=== PATIENT | female | born 1960 | race Caucasian/White ===

== ENCOUNTER 2017-11-08 00:53 | Outpatient (CLI) | payer BC, SELFPAY ==
[2017-11-08 15:37] LABS: ALT 30 U/L (12-78); AST 24 U/L (15-37); Albumin 3.7 g/dL (3.4-5.0); Alkaline Phosphatase 91 U/L (46-116); Anion Gap 6.3 mmol/L (3-11); BUN 15 mg/dL (7-18); Bilirubin, Total 0.5 mg/dL (0.2-1.0); CO2 29.7 mmol/L (21.0-32.0); CREATININE 0.72 mg/dL (0.55-1.02); Chloride 104 mmol/L (98-107); Glucose 80 mg/dL (70-100); Potassium 3.8 mmol/L (3.5-5.1); Sodium 140 mmol/L (136-145); Total Protein 6.7 g/dL (6.4-8.2); Vitamin B12 474 pg/mL (193-986)
== END 2017-11-08 01:13 ==
DX: E53.8 Deficiency of other specified B group vitamins (principal); Z00.00 Encounter for general adult medical examination without abnormal findings
CPT/HCPCS: 36415; 80053; 82607

== ENCOUNTER 2017-11-12 17:31 | Outpatient (REF) | payer BC, SELFPAY ==
--- NOTE | 2017-11-12 16:00 | PAPFT_PTH ---
PATIENT: Liudmila Montalvo LOC: [facility] U#:[id number] AGE/SX: 57/F ROOM: RE11/12/[address]: Ally Tom APRN : 1960 BED: DIS: 11/12/2017 SPEC #: [id number] RECD: 11/13/17 12:50 STATUS: RC LEAL #: [id number] SLADE: 11/12/17 16:[address]: Ally Tom DEPT: [facility] Cytology RECD BY: Aleksandra Luo Tissues: 1 - CX/ENDOCX FOR PAP SMEARS Procedures: PAP THIN PREP/UVM Screening Comments: [id number]
== END 2017-11-12 17:51 ==
LOC: LBN 17:31
DX: Z12.4 Encounter for screening for malignant neoplasm of cervix (principal)
CPT/HCPCS: 88142

== ENCOUNTER 2017-11-28 01:28 | Outpatient (CLI) | payer BC, SELFPAY ==
--- NOTE | 2017-11-28 16:00 | DI.MAMMO_ITS ---
SYMPTOM/DIAGNOSIS: SCREENING, Z12.31 MAMMOGRAMS: Mammograms were interpreted according to the usual protocol including computer analysis with CAD system, tomosynthesis and C view imaging. The breast tissue is heterogeneously radiodense which lowers the sensitivity of the study. There is no dominant mass. There are no suspicious calcifications and there has no gross interval change when compared with prior images. SUMMARY: No evidence of malignancy. Category 1. Yearly screening mammography is recommended. Breast density, category B. MQSA ASSESSMENT OF FINDINGS: Negative. Category 1. Patient will receive a letter notifying them of these results. BI-RADS category B. There are scattered areas of fibroglandular density.
== END 2017-11-28 01:48 ==
DX: Z12.31 Encounter for screening mammogram for malignant neoplasm of breast (principal)
CPT/HCPCS: 77063; 77067

== ENCOUNTER 2018-12-13 09:06 | Outpatient (CLI) | payer BC, SELFPAY ==
[2018-12-13 10:36] LABS: ALT 39 U/L (14-59); AST 23 U/L (15-37); Albumin 3.7 g/dL (3.4-5.0); Alkaline Phosphatase 75 U/L (46-116); Anion Gap 6.8 mmol/L (3-11); BUN 17 mg/dL (7-18); Bilirubin, Total 0.6 mg/dL (0.2-1.0); CO2 29.2 mmol/L (21.0-32.0); CREATININE 0.77 mg/dL (0.55-1.02); Calcium 9.4 mg/dL (8.5-10.1); Chloride 106 mmol/L (98-107); Glucose 87 mg/dL (70-100); Potassium 4.2 mmol/L (3.5-5.1); Sodium 142 mmol/L (136-145); Total Protein 7.1 g/dL (6.4-8.2); Vitamin B12 742 pg/mL (193-986)
== END 2018-12-13 09:26 ==
DX: Z00.00 Encounter for general adult medical examination without abnormal findings (principal); E53.8 Deficiency of other specified B group vitamins
CPT/HCPCS: 36415; 80053; 82607

== ENCOUNTER 2019-02-02 00:50 | Outpatient (CLI) | payer BC, SELFPAY ==
--- NOTE | 2019-02-02 09:24 | DI.MAMMO_ITS ---
EXAM: MG MAMMO SCREENING CLINICAL HISTORY: screening, Z12.39. TECHNIQUE: Bilateral full field digital CC and MLO mammographic images were obtained with 3D tomosyn thesis and utilizing computer aided detection (CAD). COMPARISON: Available for comparison. FINDINGS: Masses/Architectural Distortion: None seen. Microcalcifications: No suspicious pleomorphic-type are seen. Skin Thickening/Nipple Retraction: None. IMPRESSION: 1. No significant interval change with no specific features of malignancy noted. 2. Unless there is more urgent need, screening mammography is recommended, as per [employer] guidelines. ACR BI-RAD Category- 1 Negative Breast Density - Category B - Scattered areas of fibroglandular density A negative radiographic report should not delay biopsy if a dominant or clinically suspicious mass is present. Up to ten percent of cancers are not identified on mammography. A negative report may reinforce clinical impression. Adenosis and dense breasts may obscure an underlying neoplasm. False positive reports average 6 to 10%. Patient will receive a letter notifying them of these results.
== END 2019-02-02 01:10 ==
DX: Z12.31 Encounter for screening mammogram for malignant neoplasm of breast (principal)
CPT/HCPCS: 77063; 77067

== ENCOUNTER 2019-04-27 13:52 | Outpatient (CLI) | payer BC, SELFPAY ==
--- NOTE | 2019-04-27 13:45 | DI.RAD_ITS ---
EXAM: XR KNEE RT 3V AP,LAT,RAHEL CLINICAL HISTORY: R KNEE PAIN. TECHNIQUE: 2D digital imaging was performed. COMPARISON: CHEST 2 VIEWS PA,LAT from 05/05/2014 FINDINGS: BONES: No acute fracture is present. No bony destructive lesion is seen. Small enthesophyte at the hurt perior aspect of the patella. JOINTS: The knee is normally aligned. Small joint effusion. Periarticular spurring involving all 3 j oint compartments. SOFT TISSUE: Normal. IMPRESSION: Mild degenerative changes of the right knee. DATA REPOSITORY: RADIATION DOSE DELIVERED:
== END 2019-04-27 14:12 ==
PROVIDERS: Visit Provider Physician Assistant
DX: M25.561 Pain in right knee (principal); M25.461 Effusion, right knee; M17.11 Unilateral primary osteoarthritis, right knee
CPT/HCPCS: 73562

== ENCOUNTER 2019-06-22 01:40 | Outpatient (CLI) | payer BC, SELFPAY ==
--- NOTE | 2019-06-22 08:00 | DI.MRI_ITS ---
EXAM: MR LOWER JOINT RT WO CLINICAL HISTORY: R knee injury, INTERNAL DERANGEMENT, PAIN, M23.91. TECHNIQUE: Multiplanar multisequence MRI was performed. COMPARISON: MR MRI R LOWER JOINT WO CONT from 10/30/2016 FINDINGS: MR examination the right knee was performed according to the usual protocol. There is a moderate size knee joint effusion. Bones: There is abnormal signal in lateral femoral condyle and central portion of the distal femur. No other significant signal abnormality seen. Articular cartilage: There may be slight thinning of the patello femoral articular cartilage. There is irregular thinning of the articular cartilage of the medial femoral condyle and associated proxima l tibial articular surface. There is focal cartilage thinning associated with the aforementioned are a abnormal signal in medial femoral condyle consistent with an osteochondral defect. No bony fragmen tation seen. Menisci: There is an apparent inferior surfacing posterior horn nondisplaced medial meniscal tear. N o tear of the lateral meniscus or attachments. Cruciate ligaments: No cruciate ligament tear seen. Mildly abnormal signal in the anterior cruciate ligament, nonspecific. Collateral ligaments: No evidence of a collateral ligament tear. Posterolateral corner structures appear unremarkable. IMPRESSION: Osteochondral defect of the medial anterior aspect of the lateral femoral condyle. Cortical thinning without bony fragmentation or obvious free bony fragment Degenerative articular cartilage changes at the medial tibiofemoral joint associated with a nondispla darvin medial meniscal tear. DATA REPOSITORY:
== END 2019-06-22 02:00 ==
PROVIDERS: Visit Provider Student in an Organized Health Care Education/Training Program
DX: M25.561 Pain in right knee (principal); M23.91 Unspecified internal derangement of right knee; M25.461 Effusion, right knee; S83.241A Other tear of medial meniscus, current injury, right knee, initial encounter
CPT/HCPCS: 73721

== ENCOUNTER 2019-08-07 07:39 | Outpatient (CLI) | payer BC, SELFPAY ==
[2019-08-07 22:38] LABS: COVID-19 RT-PCR UVMMC Result Negative (Negative)
== END 2019-08-07 07:59 ==
PROVIDERS: Visit Provider Student in an Organized Health Care Education/Training Program
DX: Z01.818 Encounter for other preprocedural examination (principal); Z11.59 Encounter for screening for other viral diseases
CPT/HCPCS: U0003

== ENCOUNTER 2019-08-11 09:47 | Day surgery (SDC) | payer BC, SELFPAY ==
--- NOTE | 2019-08-10 18:35 | W.PREOPHP ---
Assessment and Plan Assessment and plan (1) Complex tear of medial meniscus of right knee: Status: Acute Assessment and plan: Plan: Patient tested negative for Covid-19 on 08/07/2019. Patient reports that she has been in quarantine since being tested and denies contact with COVID-19 positive persons. Educated patient on surgery covering surgical technique, recovery process, benefits and risks including but not limited to risk of infection, blood clot, damage to soft tissue/blood vessels/nerves in detail. After discussion patient gives verbal understanding of risks and elects to proceed with scheduling surgery. Patient had opportunity to have questions answered to their satisfaction. Patient will continue to be scheduled for right knee arthroscopy with likely partial medial meniscectomy with Dr. Villatoro. History of Present Illness Narrative: Ms. Montalvo is a 58-year-old female who presents to hospital for scheduled right knee arthroscopy with likely partial medial meniscectomy. Patient has previously been seen in orthopedic clinic for right knee pain. Initially she had discomfort that responded with injections. Unfortunately, since that time she started to have sharp discomfort with twisting motions of the knee. Based on patient's history as well as MRI which showed tear of the medial meniscus she was offered surgical intervention and wished to proceed. Review of Systems Cardiovascular Cardiovascular: Denies chest pain, Denies rapid heart rate, Denies irregular heart rhythm, Denies dyspnea and Denies slow heart rate Respiratory Respiratory: Denies cough and Denies dyspnea [facility] Social History Smoking/Tobacco Use Status: Never Second Hand Exposure: Yes Alcohol Intake: never Drug use: Never Substance use type: does not use Counseling given: No Counseling provided: none Caregiver/Support person: No Household members: none Housing: house Communication Needs: None Do you need help understanding health information?: Rarely current occupation: TEACHER [employer] Pets and animals: No Do you think of yourself as: straight/heterosexual Current gender identity: female What is your relationship status?: never How often do you talk on the phone with friends or family?: three or more times per week How often do you get together with friends or relatives?: three or more times per week How often do you attend orthodox or synagogue services?: decline to answer Do you belong to any clubs or organized social groups?: yes Panel score (0-1 are the most socially isolated patients): 2 What type of physical activity do you participate in: walking, bicycling and weight lifting Duration: 45-60 minutes/day Frequency: 5-6 times per week Trudy/Sikh: Mormon Special trudy needs: No Seatbelt use: always Helmet use: Yes Helmet use: always Drive intox or ride w/intox bus driver supervisor: No Do you feel safe at home: Yes Do you feel safe in your relationship?: Yes Meds Home Medications and Allergies Home Medications Medication Instructions Recorded Confirmed Type Glucosamine Complex-MSM 1 ea PO DAILY 08/19/12 08/11/19 History ibuprofen [Motrin IB] 200 mg PO PRN 08/19/12 08/11/19 History meclizine [Antivert] 25 mg PO TID PRN 08/19/12 08/11/19 History cyanocobalamin (vitamin B-12) 1,000 mcg PO DAILY #90 tab-cap 10/01/13 08/11/19 History [Vitamin B-12] ferrous sulfate 27 mg iron tablet 27 mg PO DAILY tab 11/12/17 08/11/19 History omega 0-cgk-bfy-fish oil 1,000 mg 1 cap PO DAILY 11/18/18 08/11/19 History (120 mg-180 mg) capsule acetaminophen 500 mg tablet 500 mg PO Q6H PRN #60 tab 08/11/19 08/11/19 Rx ibuprofen 600 mg tablet 600 mg PO TID PRN #60 tab 08/11/19 08/11/19 Rx Allergies Allergy/AdvReac Type Severity Reaction Status Date / Time kiwi Allergy Intermediate Verified 08/11/19 10:30 gabapentin AdvReac Mild Anxiety Verified 08/11/19 10:30 erythromycin base AdvReac Unknown Verified 08/11/19 10:30 hydrocodone AdvReac Unknown GI Verified 08/11/19 10:30 INTOLERANCE Exam Resp Effort & Inspection: normal respiratory effort and able to speak in complete sentences Auscultation: clear to auscultation bilaterally, no rales, no rhonchi and no wheezes Cardio Heart Sounds: S1 normal, S2 normal and no murmurs
--- NOTE | 2019-08-11 07:14 | W.PM.DSUDISC ---
Discharge Plan Disposition Patient Disposition: HOME Condition: Good Discharge Details Reason For Visit: right knee complex tear of the medial meniscus Attending Provider: Corey Villatoro Primary Care Provider: Ally Tom Home Meds and New Rx's Prescriptions: New tramadol 50 mg tablet 50 mg PO BID PRN (Reason: postoperative pain) Qty: 8 RF: 0 Continued ferrous sulfate 27 mg iron tablet 27 mg PO DAILY RF: 0 omega 0-vtr-ivg-fish oil [Fish Oil] 1,000 mg (120 mg-180 mg) capsule 1 cap PO DAILY RF: 0 meclizine [Antivert] 25 MG tablet 25 mg PO TID PRNRF: 0 ibuprofen [Motrin IB] 200 MG tablet 200 mg PO PRN RF: 0 Glucosamine Complex-MSM 1 EACH capsule 1 ea PO DAILY RF: 0 cyanocobalamin (vitamin B-12) [Vitamin B-12] 1,000 MCG tablet extended release 1,000 mcg PO DAILY Qty: 90 RF: 4 No Action ibuprofen 600 mg tablet 600 mg PO TID PRN (Reason: pain) Qty: 60 RF: 2 acetaminophen 500 mg tablet 500 mg PO Q6H PRN (Reason: pain) Qty: 60 RF: 2 Discharge Instructions Stand Alone Forms: [facility] Knee Arthroscopy Referrals: Corey Villatoro MD [ [facility] STAFF PHYSICIAN] - Equipment/Supplies: Partial Weight Bearing Crutches Activity:: Elevate Remove Dressings/Wound Care:: 72 hours Shower/Bathe:: 72 hours Diet:: As Tolerated Discharge Orders Discharge Orders: Discharge Order (Routine); Ordered 08/11/19 Ordered By: Kathleen Schilling DS: Diagnosis Discharge Diagnosis (1) Complex tear of medial meniscus of right knee: Status: Acute
[2019-08-11 10:18] VITALS: BP 115/79; PULSE 62; RESP 16; TEMP 36.6; O2SAT 99
[2019-08-11] MEDS: Lactated Ringers 1,000 ML 80 ML IV (10:53)
[2019-08-11] MEDS: ceFAZolin 2 GM/50 ML BAG IVPB (12:04)
[2019-08-11] MEDS: Bupivacaine 0.5% Pres-Free 30 ML VIAL (12:29)
[2019-08-11 13:27] VITALS: BP 115/69; PULSE 58; RESP 18; TEMP 36.2; O2SAT 100
--- NOTE | 2019-08-11 19:20 | W.PM.OP ---
Date of service: 08/11/19 Time of Service: 12:20 Operative Note Operative Note DATE OF PROCEDURE: 08/11/19 PRE-OP DIAGNOSIS: Right Knee Medial Meniscus Tear POST-OP DIAGNOSIS: same PROCEDURE: Right Knee Arthroscopic Partial Medial Menisectomy SURGEON: Corey Villatoro ANESTHESIA: GETA ESTIMATED BLOOD LOSS: 0 PATHOLOGY: none sent TOURNIQUET TIME: 0 COMPLICATIONS: None Patient was transported to: PACU Patient's condition: stable Indications: I have seen Liudmila in clinic for symptoms of a meniscus tear. This was confirmed based on MRI and exam findings. Nonoperative measures were exhausted but disability and pain persisted. I discussed knee arthroscopy with meniscal intervention with the patient. I reviewed the risks of the procedure to include, but not limited to, bleeding, infection, pain, stiffness, damage to nerves or vessels, recurrence, blood clot. Despite these risks, the patient elected to proceed. 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 The consent was reviewed with the patient and signed. The history and physical was updated. All questions were answered. She was taken back to the operating room. The patient was placed into the supine position on the operating room table. A nonsterile tourniquet was placed high onto the leg but not used. All bony prominences were well padded. Prophylactic antibiotics in the form of Cefazolin were administered. The right leg was then prepped with Chloraprep and draped in a standard fashion with stockinette and extremity drape. A timeout to confirm correct identity, side and site, procedure, allergies, anesthesia, and medical concerns was performed. The leg was placed into a pneumatic leg schofield, SPIDER2. A standard lateral portal was made at the lateral border of the patella tendon in line with the inferior pole of the patella, soft spot. The skin and deep tissue was incised sharply and the blunt trochar was inserted atraumatically. A diagnostic arthroscopy was performed and the findings are listed above. The suprapatellar pouch had no significant inflammatory change. The patellofemoral articulation showed areas of Grade I chondromalacia of both trochlea and patella as well as good tracking. The lateral gutter had no loose bodies and the medial gutter had no loose bodies. The knee was brought into some valgus stress in extension to open the medial compartment. A medial portal was made, localized by a spinal needle. The portal was created with an #11 blade through skin and capsule under direct visualization avoiding any meniscal injury. A probe was then inserted into the medial compartment. The medial compartment was fully inspected. The chondral surface of the tibia showed no significant chondromalacia and the surface of the femur showed some Grade I chondromalacia. The medial meniscus had a complex tear with a parrot beak extension just medial to the root. After evaluation, the meniscus was debrided down to a stable base using a series of biters and arthroscopic olaf. It was probed afterwards to confirm that the tear had been removed and the meniscus was stable. The notch was then inspected which showed an intact ACL and an intact PCL. The leg was then brought into a figure of 4 position. The lateral compartment was fully inspected with the arthroscope and a probe. The chondral surface of the lateral femur showed no significant chondromalacia. The chondral surface of the lateral tibia showed no significant chondromalacia. The lateral meniscus had no meniscal tear. The arthroscope was brought back into the suprapatellar pouch and the leg was in full extension. The knee was thoroughly irrigated with the arthroscopic fluid on high flow and pressure. Inflow was stopped and excess fluid was removed. The wounds were closed with 4-0 Nylon. They were dressed with Xeroform, 4x4 gauze, ABD pad, Kerlix and an MANDA wrap. A cryo-cuff was applied. The patient tolerated the procedure well and was returned to the Same Day Surgery area in a stable condition suffering no known complication.
== END 2019-08-11 15:14 | disposition home or self-care (01) ==
LOC: SUR 09:48
PROVIDERS: Visit Provider Student in an Organized Health Care Education/Training Program
PROC: (CPT 29870; principal; 2019-08-11 11:30)
DX: S83.231A Complex tear of medial meniscus, current injury, right knee, initial encounter (principal); M94.261 Chondromalacia, right knee; M22.41 Chondromalacia patellae, right knee
CPT/HCPCS: 29881; NC; J0690; J2405

== ENCOUNTER 2019-11-26 17:21 | Outpatient (REF) | payer BC, SELFPAY ==
[2019-11-26 21:41] LABS: Hemoglobin A1C 5.5 % (<5.7)
[2019-11-26 21:42] LABS: BUN 19 mg/dL (7-18); CREATININE 0.79 mg/dL (0.55-1.02); Calcium 9.5 mg/dL (8.5-10.1); Calculated LDL 128 mg/dL (<100); Chloride 104 mmol/L (98-107); Cholesterol 252 mg/dL (<200); Glucose 93 mg/dL (74-106); HDL Cholesterol 113 mg/dL (40-60); Potassium 4.1 mmol/L (3.5-5.1); Sodium 142 mmol/L (136-145); Triglyceride 56 mg/dL (<150)
== END 2019-11-26 17:41 ==
LOC: LBN 17:21
PROVIDERS: Visit Provider Nurse Practitioner Family
DX: E78.5 Hyperlipidemia, unspecified (principal)
CPT/HCPCS: 80048; 80061; 83036

== ENCOUNTER 2020-02-17 02:42 | Outpatient (CLI) | payer BC, SELFPAY ==
--- NOTE | 2020-02-17 14:55 | DI.MAMMO_ITS ---
EXAM: MG MAMMO SCREENING CLINICAL HISTORY: screening,Z12.39. TECHNIQUE: Bilateral full field digital CC and MLO mammographic images were obtained with 3D tomosyn thesis and utilizing computer aided detection (CAD). COMPARISON: Prior mammograms dating back to 2010, the most recent being January 2019.. FINDINGS: There are no spiculated masses nor malignant appearing microcalcification groups. There is no signif icant architectural distortion nor skin thickening-retraction. IMPRESSION: No radiographic evidence of malignancy. BI-RADS Category 1 - Negative Breast Density - Category B - Scattered areas of fibroglandular density Breast density Category C or D implies that the patient has dense breast tissue. Dense breast tissue can make it harder to find cancer on a mammogram. Dense breast tissue is also associated with an incr eased risk of breast cancer. This information about the result of the mammogram report was provided to the patient to raise their awareness. Use this report when you speak with the patient about their risks for breast cancer, which includes their family history. At that time, you may recommend additional screening tests (Ultrasoun d or MRI) as these tests may add significant information. A negative radiographic report should not delay biopsy if a dominant or clinically suspicious mass is present. Up to ten percent of cancers are not identified on mammography. A negative report may reinforce clinical impression. Adenosis and dense breasts may obscure an underlying neoplasm. False positive reports average 6 to 10%. Patient will receive a letter notifying them of these results.
== END 2020-02-17 03:02 ==
PROVIDERS: PCP Nurse Practitioner Family; Visit Provider Nurse Practitioner Family
DX: Z12.31 Encounter for screening mammogram for malignant neoplasm of breast (principal)
CPT/HCPCS: 77063; 77067

== ENCOUNTER 2020-12-08 14:32 | Outpatient (REF) | payer BC, SELFPAY ==
--- NOTE | 2020-12-08 10:50 | PAPFT_PTH ---
PATIENT: Liudmila Montalvo LOC: [facility] U#:[id number] AGE/SX: 60/F ROOM: RE12/08/[address]: SUSAN Moran : 1960 BED: DIS: 12/08/2020 SPEC #: [id number] RECD: 12/08/20 18:28 STATUS: RC REQ #: [id number] SLADE: 12/08/20 10:[address]: Vane Reynoso DEPT: [facility] Cytology RECD BY: Aleksandra Luo Tissues: 1 - CX/ENDOCX FOR PAP SMEARS Procedures: PAP THIN PREP/UVM Screening HPV DNA PROBE Comments: [id number]
== END 2020-12-08 14:33 | disposition home or self-care (01) ==
LOC: LBN 14:32
PROVIDERS: PCP Nurse Practitioner Family; Visit Provider Nurse Practitioner Family
DX: Z12.4 Encounter for screening for malignant neoplasm of cervix (principal); Z11.51 Encounter for screening for human papillomavirus (HPV)
CPT/HCPCS: 88142; 87624

== ENCOUNTER 2021-03-15 00:47 | Outpatient (CLI) | payer BC, SELFPAY ==
--- NOTE | 2021-03-15 06:45 | DI.MAMMO_ITS ---
Exam(s) MAMMO SCREENING EXAM: MAMMO SCREENING CLINICAL HISTORY: screening,z12.39 TECHNIQUE: Mammograms were interpreted according to the usual protocol including computer analysis w [employer] CAD system, tomosynthesis and C-view imaging. COMPARISON: 2011 through 2020 FINDINGS: The breasts are composed of scattered fibroglandular densities, Breast Density category B. No suspicious masses or suspicious microcalcifications are seen. No skin thickening or abnormal axillary lymph nodes are seen. There has been no significant change from prior exams. IMPRESSION: BI-RADS Category 1, Negative mammogram Yearly screening mammography is recommended. Breast Density - Category B, scattered fibroglandular densities. A negative radiographic report should not delay biopsy if a dominant or clinically suspicious mass is present. Up to ten percent of cancers are not identified on mammography. A negative report may reinforce clinical impression. Adenosis and dense breasts may obscure an underlying neoplasm. False positive reports average 6 to 10%. Patient will receive a letter notifying them of these results.
== END 2021-03-15 01:07 ==
PROVIDERS: PCP Nurse Practitioner Family; Visit Provider Nurse Practitioner Family
DX: Z12.31 Encounter for screening mammogram for malignant neoplasm of breast (principal)
CPT/HCPCS: 77063; 77067

== ENCOUNTER 2021-10-20 11:06 | Day surgery (SDC) | payer BC, SELFPAY ==
--- NOTE | 2021-10-19 19:33 | W.COLOREPORT ---
Colonoscopy Report Date of procedure: 10/20/21 Pre-op diagnosis general: CRC screening Post-op diagnosis procedure note: other (normal) Surgeon: Kathleen Tee Anesthesia Type: General:No Airway Estimated blood loss (mL): 0 Pathology: none sent Complications: None Disposition: same day Prep: Miralax/Dulcolax Retraction Time: 8 Procedure Description: After informed consent was obtained the patient was taken to the procedure room and placed in a left decubitous position. Monitors were applied and a time out was done. The patients name, date of , procedure, allergies to medications and metal in their body was reviewed. The patient was then sedated. Once sedated and comfortable a rectal exam was done. External exam was normal. Internal exam revealed a normal sphincter tone and no palpable masses. The scope was then introduced and retrofelexed. grade 1x1 column internal hemorrhoids and a hemorrhoidal tag were identified. The scope was then advanced to the cecum w/out difficulty. The TI and appendiceal orifice were identified. The prep was BB PS 2 in all segments for a total of 6. The scope was then slowly retracted over 8 minutes back into the rectum. There are no polyps, AVMs, or diverticula visualized today. Mucosa is pink and healthy with a normal vascular pattern.. The scope was removed and the patient was woken up and taken back to Same day surgery in stable condition. The patient tolerated the procedure well and there were no immediate complications. Follow up: The patient should follow up in 10 years unless they develop changes in bowel habits or other new gastrointestinal complaints.
--- NOTE | 2021-10-19 19:34 | PDOC.DSDIS_ITS ---
Discharge Plan Disposition Patient Disposition: HOME Condition: Good Discharge Details Reason For Visit: colon cancer screening Attending Provider: Kathleen Tee Primary Care Provider: Vane Reynoso Home Meds and New Rx's Prescriptions: Continued ibuprofen 600 mg tablet 600 mg PO TID PRN (Reason: pain) Qty: 60 2RF acetaminophen 500 mg tablet 500 mg PO Q6H PRN (Reason: pain) Qty: 60 2RF ferrous sulfate 27 mg iron tablet 27 mg PO DAILY omega 9-rwq-qoj-fish oil [Fish Oil] 1,000 mg (120 mg-180 mg) capsule 1 cap PO DAILY cholecalciferol (vitamin D3) 25 mcg (1,000 unit) capsule 25 mcg PO DAILY Label Comments: only during winter months meclizine [Antivert] 25 MG tablet 25 mg PO TID PRN ibuprofen [Motrin IB] 200 MG tablet 200 mg PO PRN cyanocobalamin (vitamin B-12) [Vitamin B-12] 1,000 MCG tablet extended release 1,000 mcg PO DAILY Qty: 90 Discontinued bisacodyl [Dulcolax (bisacodyl)] 5 mg tablet,delayed release (DR/EC) 5 mg PO ONCE Qty: 4 0RF Rx Instructions: Take according to provider's instructions for colonoscopy prep. polyethylene glycol 3350 17 gram/dose powder 17 g PO ONCE Qty: 238 0RF Rx Instructions: To be taken as directed by prescriber's office for colonoscopy prep. Discharge Instructions Additional Instructions: DSU Colonoscopy Post- Op Instructions Instructions for Everyone who is given Anesthesia: For your safety, please do the following for the next twenty-four (24) hours: *Do Not operate a motor vehicle (car, truck, motorcycle, etc.) *Do Not drink alcoholic beverages or use any recreational drugs for the first 24 hours or while taking pain medications. The medications in your body may have a reaction that can be dangerous. *Do Not make any important decisions or sign any important papers. Findings: normal Follow up: repeat in 10 yrs time 1. No lifting over 20 pounds or strenuous activity for the first 24 hours after your procedure. After 24 hours there are no restrictions on your activity but you may feel fatigued for a few days. 2. After you arrive home you may have a light meal and return to your normal diet as you can tolerate it without feeling sick to your stomach. 3. You may have a bloated, gaseous feeling in your belly (abdomen) after a c olonoscopy. Passing gas and belching will help. Walking or lying down on your left side with your knees flexed may relieve the discomfort. Call the office at [phone] (Office) or [phone] (Hospital) right away if you notice any of the following: a.Vomiting of blood or ?coffee ground stools?. b.Rectal bleeding 1Tbsp, blood clots or continuous bleeding. c.Severe belly (abdominal) pain. d.A hard distended belly (abdomen) and an inability to pass gas. 4. Please don?t expect to have a normal BM (bowel movement) for 2-3 days after your procedure. 5. If there are questions regarding the findings of your procedure, please contact your doctor 6. If you are unable to contact your doctor with a problem, contact the hospital at [phone]. 7. Continue all your regular medications unless directed otherwise. I understand the above instructions and have no questions. Signature of Patient or Adult Escort Name of Responsible Adult Escort Signature of Nurse Date/Time Stand Alone Forms: Anesthesia Discharge Inst., Colonoscopy Post Instructions, Press Jazmine (DSU) Activity:: see above Diet:: see above
[2021-10-20 11:42] VITALS: BP 133/90; PULSE 70; RESP 18; TEMP 36.2; O2SAT 99
--- NOTE | 2021-10-20 11:58 | W.ANESPRE ---
General Info Date of Service Date Performed: 10/20/21 Height: 5 ft 6 in Weight: 60.3 kg Body Mass Index (BMI): 21.4 Surgical Procedure: Operation Date: 10/20/21 11:20 Proposed Procedure Side Surgeon tuan Tee, DO Meds Allergies and Home Medications Allergies Allergy/AdvReac Type Severity Reaction Status Date / Time kiwi Allergy Intermediate itchy Verified 10/20/21 11:40 gabapentin AdvReac Mild Anxiety Verified 10/20/21 11:40 erythromycin base AdvReac Unknown upset GI Verified 10/20/21 11:40 hydrocodone AdvReac Unknown GI Verified 10/20/21 11:40 INTOLERANCE Home Medication Medication Instructions Recorded ibuprofen 200 mg tablet (Motrin IB) 200 mg PO PRN 08/19/12 meclizine 25 mg tablet (Antivert) 25 mg PO TID PRN 08/19/12 cyanocobalamin (vitamin B-12) 1,000 mcg PO DAILY #90 tab-caps 10/01/13 1,000 mcg tablet,extended release (Vitamin B-12 ER) ferrous sulfate 27 mg iron tablet 27 mg PO DAILY 11/12/17 omega [id number]-fish oil 1,000 mg 1 cap PO DAILY 11/18/18 (120 mg-180 mg) capsule (Fish Oil) acetaminophen 500 mg tablet 500 mg PO Q6H PRN pain #60 tabs 08/11/19 ibuprofen 600 mg tablet 600 mg PO TID PRN pain #60 tabs 08/11/19 cholecalciferol (vitamin D3) 25 25 mcg PO DAILY 03/25/20 mcg (1,000 unit) capsule Current Visit Medications: Current Medications Generic Name Dose Route Start Last Admin Trade Name Freq PRN Reason Stop Dose Admin Ringer's Solution 1,000 mls @ 80 mls/hr 10/20/21 06:00 IV 11/18/21 23:59 INFUSION LIN IV Miscellaneous Supplies 1 each 10/20/21 06:00 Iv Access IV 11/18/21 23:59 DIRECTED LIN Sodium Chloride 0 ml 10/20/21 06:00 Normal Saline Flush 10 Ml Syr IV 11/18/21 23:59 PRN PRN Sodium Chloride 0 ml 10/20/21 06:00 Normal Saline 10 Ml Vial IJ 11/18/21 23:59 DIRECTED PRN Sterile Water 0 ml 10/20/21 06:00 Water,Injection,Sterile 10 Ml Vial IJ 11/18/21 23:59 DIRECTED PRN PFSH Active Problems Active Problems: Problem Status Onset Code Hyperlipidemia E78.5 Medical History Medical History Postmenopausal bleeding 2014, negative endometrial biopsy Vitamin B12 deficiency Surgical History Surgical History History of bunionectomy of right great toe S/P colonoscopy (10/19/11) S/P medial meniscectomy of right knee (08/11/19) S/P tonsillectomy Tobacco Smoking/Tobacco Use Status: Never Passive smoking exposure: Yes Second hand exposure: Yes Alcohol Alcohol Intake: never Substance Use Substance use: Never Substance use type: does not use Counseling provided: none Prental History History 0 Para Hx # Term Pregnancies Multiple births Hx # Pregnancies Ectopic pregnancies AB induced Hx Number of Living Children AB spontaneous Vital Signs and Lab Results Vital Signs Most Recent Vital Signs in EMR: Most Recent Vital Signs Temp Pulse Resp BP Pulse Ox 36.2 C L 70 18 133/90 99 10/20/21 11:42 10/20/21 11:42 10/20/21 11:42 10/20/21 11:42 10/20/21 11:42 Lab Results Blood Type / Crossmatch: No Data to Display Complete Blood Count: No Data to Display Complete Metabolic Panel: No Data to Display Liver Function Panel: No Data to Display Coagulation Panel: No Data to Display Cardiac Panel: No Data to Display Arterial Blood Gas: No Data to Display Venous Blood Gas: No Data to Display Pancreas Panel: No Data to Display Thyroid Panel: No Data to Display Infectious Disease: No Data to Display Blood Cultures: No Data to Display Toxicology Panel: No Data to Display Anesthesia Assessment and Plan Anesthesia History Personal History: PONV Family History: No Family History of Anesthesia Complications Exercise Tolerance Exercise Tolerance: Metabolic Equivalents>4 Pertinent Negatives Pertinent Negatives: No Symptoms of GERD, No Major Cardiovascular Symptoms or Complaints and No Major Pulmonary Symptoms or Complaints Cardiac & Pulmonary Exam Cardiac Exam: Normal S1/S2 Heart Sounds Pulmonary Exam: Clear Bilateral Breath Sounds Implantable Cardiac Device Does patient have a Pacemaker or an ICD?: No Airway Exam Known Difficult Airway: No Mallampati Class: 1 Mouth Opening: Normal (> 3cm) Thyromental Distance: Greater than 3 cm Neck Range of Motion: Full ROM Neck Circumference: Normal Teeth Condition: Normal Dentition ASA Classification ASA Score: ASA 1 Emergency Case?: No NPO Status NPO Status: NPO Clears >2 hours, Solids >8 hours Anesthesia Plan Resuscitation Status: Full Code Anesthesia Technique: General Anesthesia Airway Planned: LMA Monitors Used: Standard Monitors
[2021-10-20] MEDS: Lactated Ringers 1,000 ML 80 ML IV (12:00)
[2021-10-20 12:01] VITALS: BMI 21.4
[2021-10-20 12:49] VITALS: BP 94/71; PULSE 64; RESP 16; TEMP 36.5; O2SAT 97
[2021-10-20 13:28] VITALS: BP 110/68; PULSE 60; RESP 16; TEMP 36.5; O2SAT 100
--- NOTE | 2021-10-20 13:59 | W.ANESPOSTOP ---
Postoperative Evaluation Date, Time and Location Date Performed: 10/20/21 Time Performed: 13:15 Patient Location: Day [facility] Unit Vital Signs Most Recent Imported Vital Signs: Most Recent Vital Signs Temp Pulse Resp BP Pulse Ox 36.5 C 60 16 110/68 100 10/20/21 13:28 10/20/21 13:28 10/20/21 13:28 10/20/21 13:28 10/20/21 13:28 Pain Score Most Recent Pain Score: Most Recent Pain Score Pain Level 0 10/20/21 13:28 Assessment Mental Status: Awake (Alert & Oriented to Patient Baseline) Airway and Respiratory Function: Patent airway with normal (patient baseline) respiratory exam Cardiovascular Function: Hemodynamically Stable Hydration Status: Adequately Hydrated Nausea & Vomiting: No Nausea or Vomiting Pain: Pt. Denies Any Pain Peripheral Nerve Block: Patient did not receive a nerve block
== END 2021-10-20 13:40 | disposition home or self-care (01) ==
PROVIDERS: PCP Nurse Practitioner Family; Visit Provider Surgery
PROC: 0DJD8ZZ Inspection of Lower Intestinal Tract, Via Natural or Artificial Opening Endoscopic (ICD-10-PCS; CPT 45378; principal; 2021-10-20 11:15)
DX: Z12.11 Encounter for screening for malignant neoplasm of colon (principal)
CPT/HCPCS: 45378

== ENCOUNTER 2022-01-15 04:07 | Outpatient (CLI) | payer BC, SELFPAY ==
[2022-01-15 07:09] LABS: HCT 42.8 % (36.0-46.0); HGB 14.4 g/dL (11.2-15.7); MCH 30.8 pg (27.0-33.0); MCHC 33.6 % (32.0-36.0); MCV 92 fL (80-95); MPV 9.5 fL (8.0-11.0); Platelet Count 295 10^3/uL (130-400); RBC 4.67 10^6/uL (3.93-5.22); RDW 11.5 % (11.7-14.6); WBC 6.14 10^3/uL (4.4-10.8)
[2022-01-15 08:16] LABS: Anion Gap 6.2 mmol/L (3-11); BUN 17 mg/dL (7-18); CO2 29.8 mmol/L (21.0-32.0); CREATININE 0.8 mg/dL (0.55-1.02); Calcium 9.5 mg/dL (8.5-10.1); Calculated LDL 116 mg/dL (<100); Chloride 106 mmol/L (98-107); Cholesterol 238 mg/dL (<200); Ferritin 182 ng/mL (8-252); Glucose 70 mg/dL (74-106); HDL Cholesterol 108 mg/dL (40-60); Potassium 4.4 mmol/L (3.5-5.1); Sodium 142 mmol/L (136-145); Triglyceride 70 mg/dL (<150); Vitamin B12 786 pg/mL (193-986)
== END 2022-01-15 04:08 | disposition home or self-care (01) ==
LOC: LBO 04:07
PROVIDERS: PCP Nurse Practitioner Family; Visit Provider Nurse Practitioner Family
DX: E53.8 Deficiency of other specified B group vitamins (principal); E78.5 Hyperlipidemia, unspecified
CPT/HCPCS: 36415; 80048; 80061; 85027; 82607; 82728

== ENCOUNTER 2022-03-19 01:04 | Outpatient (CLI) | payer BC, SELFPAY ==
--- NOTE | 2022-03-19 06:45 | DI.MAMMO_ITS ---
Exam(s) MAMMO SCREENING EXAM: MAMMO SCREENING CLINICAL HISTORY: screening,z12.39 TECHNIQUE: Bilateral full field digital CC and MLO mammographic images were obtained with 3D tomosyn thesis and utilizing computer aided detection (CAD). COMPARISON: Available for comparison. FINDINGS: Masses/Architectural Distortion: None seen. Microcalcifications: No suspicious pleomorphic-type are seen. Skin Thickening/Nipple Retraction: None. IMPRESSION: 1. No significant interval change with no specific features of malignancy noted. 2. Unless there is more urgent need, screening mammography is recommended, as per [employer] guidelines. BI-RADS Category 1 - Negative Breast Density - Category B - Scattered areas of fibroglandular density Breast density category C or D implies that the patient has dense breast tissue. Dense breast tissue is very common and is not abnormal but dense breast tissue can make it harder to find cancer on a ma mmogram. Also, dense breast tissue may increase their breast cancer risk. This information about the result of the mammogram report was provided to the patient to raise their awareness. Use this report when you speak with the patient about their risks for breast cancer, which includes their family hist ory. At that time, you may recommend for more screening tests (Ultrasound or MRI) as they might be us eful based on their risk. A negative radiographic report should not delay biopsy if a dominant or clinically suspicious mass is present. Up to ten percent of cancers are not identified on mammography. A negative report may reinforce clinical impression. Adenosis and dense breasts may obscure an underlying neoplasm. False positive reports average 6 to 10%. Patient will receive a letter notifying them of these results.
== END 2022-03-19 01:24 ==
LOC: DI 01:04
PROVIDERS: PCP Nurse Practitioner Family; Visit Provider Nurse Practitioner Family
DX: Z12.31 Encounter for screening mammogram for malignant neoplasm of breast (principal)
CPT/HCPCS: 77063; 77067

== ENCOUNTER → 2023-05-08 01:39 | Outpatient (CLI) | payer BC, SELFPAY ==
--- NOTE | 2023-05-08 06:30 | DI.MAMMO_ITS ---
Exam(s) MAMMO SCREENING EXAM: MAMMO SCREENING CLINICAL HISTORY: screening,z12.39 TECHNIQUE: Mammograms were interpreted according to the usual protocol including computer analysis w [employer] CAD system, tomosynthesis and C-view imaging. COMPARISON: 2013 through 2022 FINDINGS: The breasts are composed of scattered fibroglandular densities, Breast Density category B. No suspicious masses or suspicious microcalcifications are seen. No skin thickening or abnormal axillary lymph nodes are seen. There has been no significant change from prior exams. IMPRESSION: BI-RADS Category 1, Negative mammogram Yearly screening mammography is recommended. Breast Density - Category B, scattered fibroglandular densities. A negative radiographic report should not delay biopsy if a dominant or clinically suspicious mass is present. Up to ten percent of cancers are not identified on mammography. A negative report may reinforce clinical impression. Adenosis and dense breasts may obscure an underlying neoplasm. False positive reports average 6 to 10%. Patient will receive a letter notifying them of these results.
== END ==
PROVIDERS: PCP Nurse Practitioner Family; Visit Provider Nurse Practitioner Family
DX: Z12.31 Encounter for screening mammogram for malignant neoplasm of breast (principal); R92.323 Mammographic fibroglandular density, bilateral breasts
CPT/HCPCS: 77063; 77067

== ENCOUNTER 2023-10-28 02:49 | Outpatient (CLI) | payer BC, SELFPAY ==
--- NOTE | 2023-10-28 11:57 | DI.RAD_ITS ---
Exam(s) XR FOOT LT COMPLETE EXAM: XR FOOT LT COMPLETE CLINICAL HISTORY: Left heel pain, LT FOOT PAIN, M79.672. TECHNIQUE: 2D digital imaging was performed. COMPARISON: No exams were available for comparison FINDINGS: 3 views No evidence of acute fracture or diastasis of Lisfranc joint. There is soft tissue swelling laterally over the head of the 5th metatarsal no radiopaque foreign bod y nor cortical disruption at this level. Bone density normal. No osseous lesions. No erosions. Mi ld degenerative changes noted at the great toe metatarsophalangeal joint. No osseous lesions. Small inferior calcaneal spur is noted. Small enthesophyte and posterior Achilles attachment site on calc aneus noted. IMPRESSION: As above. DATA REPOSITORY: RADIATION DOSE DELIVERED:
== END 2023-10-28 03:09 ==
LOC: DI 02:49
PROVIDERS: PCP Nurse Practitioner Family; Visit Provider Podiatrist
DX: M79.672 Pain in left foot (principal)
CPT/HCPCS: 73630

== ENCOUNTER 2024-06-01 01:45 | Outpatient (CLI) | payer BC, SELFPAY ==
--- NOTE | 2024-06-01 08:48 | DI.MAMMO_ITS ---
Exam(s) MAMMO SCREENING EXAM: MAMMO SCREENING CLINICAL HISTORY: screening,z12.39 TECHNIQUE: Bilateral full field digital CC and MLO mammographic images were obtained with 3D tomosyn thesis and utilizing computer aided detection (CAD). COMPARISON: Available for comparison. FINDINGS: Masses/Architectural Distortion: No suspicious masses or areas of architectural distortion are presen t. Microcalcifications: No suspicious pleomorphic-type are seen. Skin Thickening/Nipple Retraction: None. IMPRESSION: 1. No significant interval change with no specific features of malignancy noted. 2. Unless there is more urgent need, screening mammography is recommended, as per [employer] guidelines. BI-RADS Category 1 - Negative Breast Density - Category B - Scattered areas of fibroglandular density Breast density category C or D implies that the patient has dense breast tissue. Dense breast tissue is very common and is not abnormal but dense breast tissue can make it harder to find cancer on a ma mmogram. Also, dense breast tissue may increase their breast cancer risk. This information about the result of the mammogram report was provided to the patient to raise their awareness. Use this report when you speak with the patient about their risks for breast cancer, which includes their family hist ory. At that time, you may recommend for more screening tests (Ultrasound or MRI) as they might be us eful based on their risk. A negative radiographic report should not delay biopsy if a dominant or clinically suspicious mass is present. Up to ten percent of cancers are not identified on mammography. A negative report may reinforce clinical impression. Adenosis and dense breasts may obscure an underlying neoplasm. False positive reports average 6 to 10%. Patient will receive a letter notifying them of these results.
== END 2024-06-01 02:05 ==
LOC: DI 01:45
PROVIDERS: PCP Nurse Practitioner Family; Visit Provider Nurse Practitioner Family
DX: Z12.31 Encounter for screening mammogram for malignant neoplasm of breast (principal); R92.323 Mammographic fibroglandular density, bilateral breasts
CPT/HCPCS: 77063; 77067

== ENCOUNTER 2024-12-30 03:33 | Outpatient (CLI) | payer BC, SELFPAY ==
[2024-12-30 10:58] LABS: TSH (W/Ref FT4) 1.28 uIU/mL (0.55-4.78)
[2024-12-30 10:59] LABS: Anion Gap 8 mmol/L (3-11); BUN 14 mg/dL (9-23); CO2 27.0 mmol/L (20.0-31.0); Calcium 9.9 mg/dL (8.3-10.6); Chloride 106 mmol/L (98-107); Cholesterol 268 mg/dL (<200); Glucose 83 mg/dL (74-106); HDL Cholesterol 102 mg/dL (>40); Potassium 3.7 mmol/L (3.5-5.1); Sodium 141 mmol/L (136-145)
[2024-12-30 11:20] LABS: Hemoglobin A1C 5.3 % (<5.7)
[2024-12-30 18:25] LABS: HIV-1/2 Ag & Ab Screen Negative (Negative)
[2024-12-30 18:39] LABS: HBs Antibody, Quant 12.1 mIU/mL (See Note); Hepatitis B Surface Antigen Negative (Negative)
[2024-12-30 19:11] LABS: Hepatitis C Ab w Rflx HCV PCR Negative (Negative)
== END 2024-12-30 03:34 | disposition home or self-care (01) ==
LOC: LBO 03:33
PROVIDERS: PCP Nurse Practitioner Family; Visit Provider Nurse Practitioner Family
DX: Z11.4 Encounter for screening for human immunodeficiency virus [HIV] (principal); E78.5 Hyperlipidemia, unspecified; Z11.59 Encounter for screening for other viral diseases
CPT/HCPCS: 36415; 80048; 80061; 86704; 86706; 86803; 87340; 87389; 83036; 84443